=== PATIENT | male | born 1950 | race Caucasian/White ===

== ENCOUNTER → 2016-11-01 | Outpatient (CLI) | payer OTHER ==
[~2016-11-01] MED LIST: IOPAMIDOL (ISOVUE 370) 100 ML BTL IV ONE
== END ==
LOC: FIMAGING 12:53
PROVIDERS: ATTEND Thoracic Surgery (Cardiothoracic Vascular Surgery)
DX: I71.2 Thoracic aortic aneurysm, without rupture (principal); Q23.1 Congenital insufficiency of aortic valve
CPT/HCPCS: Q9967

== ENCOUNTER → 2017-10-11 | Outpatient (CLI) | payer OTHER, MEDICARE | LOC: FIMAGING 09:16 | PROVIDERS: ATTEND Thoracic Surgery (Cardiothoracic Vascular Surgery) | DX: I71.2 Thoracic aortic aneurysm, without rupture (principal); I70.0 Atherosclerosis of aorta | CPT/HCPCS: 71275; Q9967 ==

== ENCOUNTER → 2018-10-02 | Outpatient (CLI) | payer OTHER, MEDICARE | LOC: BHFA 09:15 | PROVIDERS: ATTEND Internal Medicine Cardiovascular Disease | DX: I35.0 Nonrheumatic aortic (valve) stenosis (principal) ==

== ENCOUNTER 2018-10-24 08:18 | Day surgery (SDC) | payer OTHER, MEDICARE ==
[2018-10-24] MEDS ORDERED: ASPIRIN EC 325 MG TAB PO ONE ×2 (08:23→08:36)
[2018-10-24] MEDS ORDERED: DIAZEPAM 5 MG TAB PO ONE (08:23)
[2018-10-24] MEDS ORDERED: NS 1,000 ML IV ONE (08:23)
[2018-10-24] MEDS ORDERED: FAMOTIDINE 20 MG TAB PO ONE (08:23)
[2018-10-24] MEDS ORDERED: diphenhydrAMINE 25 MG CAP PO ONE ×2 (08:23→08:35)
[2018-10-24] MEDS ORDERED: FAMOTIDINE 20 MG TAB ONE (08:35)
[2018-10-24] MEDS ORDERED: DIAZEPAM 5 MG TAB ONE (08:36)
[2018-10-24] MEDS ORDERED: LIDOCAINE 1% 300 MG/30 ML SDV ONE (09:09)
[2018-10-24] MEDS ORDERED: fentaNYL 100 MCG/2 ML INJ ONE (09:09)
[2018-10-24] MEDS ORDERED: VERAPAMIL 5 MG/2 ML VIAL ONE (09:10)
[2018-10-24] MEDS ORDERED: IOPAMIDOL (ISOVUE-370) 150 ML BTL IV ONE (09:10)
[2018-10-24] MEDS ORDERED: MIDAZOLAM 2 MG/2 ML VIAL ONE (09:10)
[2018-10-24] MEDS ORDERED: HEPARIN 10,000 UNIT/10 ML MDV (1,000 UNIT/ML) ONE (09:10)
--- NOTE | 2018-10-24 09:12 | PDHPUP ---
History & Physical Update H&P update statement: This history and physical update is based on an assessment of the patient which was completed after admission or registration (within 24 hours), but prior to the surgery/procedure. H&P update: H&P reviewed & patient examined, no change in patient's condition since H&P completed
--- NOTE | 2018-10-24 09:13 | PDPROPOC ---
Sedation Plan of Care Sedation Plan of Care: vital signs stable, mental status noted, patient educated of risks, benefits, alternatives, patient can tolerate sedation ASA Classification: ASA 3 Planned drugs: fentanyl, midazolam Mallampati Score: Class 2 Mallampati Reference Image: Patient passed 3-3-2 rule?: Yes
[2018-10-24 09:16] LABS: PLATELET COUNT 214 10^3/uL (150-400)
[2018-10-24 09:21] LABS: INR 0.96 (0.83-1.16); PROTIME(PATIENT) 12.4 SEC (12.0-15.0)
--- NOTE | 2018-10-24 10:09 | PDDXCAT ---
Diagnostic Cath Note - . Date: 10/24/18 [employer] Supervisor: Tyrone Indication: other (NYHA Class II ) - Procedure Access: right wrist Procedure: left heart catheterization, coronary angiography, right heart catheterization - Materials Left Heart Cath size: 5F Left Heart Cath materials: JL3.5, JR4.0, pigtail - Findings-Left Heart Catheterization LM: The left main is 8m in size and bifurcates into a Circumflex and LAD system. LAD: The left anterior descending artery is 3.5mm in size. The vessel gives rise to a principal diagonal branch. There is no evidence of coronary artery obstruction. There is ZEINA III flow. LCX: The left circumflex is 3.5mm in size. The vessel gives rise to a high obtuse marginal branch, which serves as a functional Ramus. There is no flow- limiting obstruction. There is ZEINA III flow. RCA: The right coronary artery is 3.5mm in size and dominant. The vessel gives rise to a PDA branch. There is ZEINA III flow throughout. Ramus: The functional ramus is 2mm in size and free of flow limiting disease. - Findings-Right Heart Catheterization RA: ; SAT 83.1%; SVC SAT 84.0% RV: 35/2/12 PA: 34/16/24;SAT 81.3% PAOP: 13/13 AO: 106/75/91; SAT 94.2% Complications: NONE Estimated blood loss: <50ml Closure method: TR Band Assessment: The patient has non flow-limiting coronary disease. The patient has normal right heart pressures. The cardiac output and index were recorded but were felt to be spuriously high. He will have a consultation for aortic valve surgery and aortic root replacement in December following his [facility] and trip to [place]. Plan: The patient has known severe aortic stenosis with an elevate peak gradient of 71mmHg. The patient does not have evidence of flow-limiting coronary disease. The patient will have a CT angiogram of the chest for evaluation of the patient' s thoracic aortic aneurysm with 3D reconstruction prior to AVR surgery. He will proceed with aortic valve and aortic root replacement. Intervention: NONE Patient Problems: Problems Problem Status Onset Aortic stenosis due to bicuspid aortic valve Acute Thoracic aortic aneurysm Acute
[2018-10-24] MEDS ORDERED: OXYCODONE/APAP 5/325 TAB PO PRN (11:10)
[2018-10-24] MEDS ORDERED: ATROPINE SULFATE 1 MG/10 ML SYR IVP PRN (11:10)
[2018-10-24] MEDS ORDERED: HYDROCODONE/APAP 5/325 TAB PO PRN (11:10)
[2018-10-24] MEDS ORDERED: ONDANSETRON 4 MG/2 ML VIAL IVP PRN (11:10)
[2018-10-24] MEDS ORDERED: NITROGLYCERIN 0.4 MG BTL SL PRN (11:10)
--- NOTE | 2018-10-24 13:19 | CPEKG ---
Test Reason : OPEN Blood Pressure : / mmHG Vent. Rate : 081 BPM Atrial Rate : 081 BPM P-R Int : 179 ms QRS Dur : 094 ms QT Int : 387 ms P-R-T Axes : 055 -18 057 degrees QTc Int : 450 ms Sinus rhythm Borderline left axis deviation Confirmed by Michael Byrd ([id number]) on 10/24/2018 1:18:51 PM Referred By: Nas Hansen Confirmed By:Michael Byrd
[2018-10-24] MEDS ORDERED: ATORVASTATIN CALCIUM 20 MG TAB PO SCH (21:00)
[2018-10-24] MEDS ORDERED: NIACIN 500 MG TAB PO SCH (21:00)
[2018-10-25] MEDS ORDERED: ASPIRIN 81 MG CHEWABLE TAB PO SCH (09:00)
[2018-10-25] MEDS ORDERED: ALLOPURINOL 300 MG TAB PO SCH (09:00)
[2018-10-25] MEDS ORDERED: CETIRIZINE 10 MG TAB PO SCH (09:00)
[2018-10-25] MEDS ORDERED: OMEGA-3 FATTY ACIDS 1,000 MG CAP PO SCH (09:00)
[2018-10-25] MEDS ORDERED: ASCORBIC ACID 500 MG TAB PO SCH (09:00)
== END 2018-10-24 14:05 | disposition home or self-care (01) ==
LOC: FCATH 08:18
PROVIDERS: ATTEND Internal Medicine Cardiovascular Disease
DX: I35.0 Nonrheumatic aortic (valve) stenosis (principal); I25.10 Atherosclerotic heart disease of native coronary artery without angina pectoris; G47.33 Obstructive sleep apnea (adult) (pediatric); E78.5 Hyperlipidemia, unspecified
CPT/HCPCS: J1644; J2250; J3010; Q9967

== ENCOUNTER → 2018-11-01 | Outpatient (CLI) | payer OTHER, MEDICARE | LOC: FIMAGING 09:01 | PROVIDERS: ATTEND Thoracic Surgery (Cardiothoracic Vascular Surgery) | DX: I71.2 Thoracic aortic aneurysm, without rupture (principal); J98.09 Other diseases of bronchus, not elsewhere classified | CPT/HCPCS: 71275; Q9967; 82565-PO ==